=== PATIENT | male | born 1950 | race Caucasian/White ===

== ENCOUNTER 2024-02-16 14:10 | Emergency (ER) | payer MEDICARE, MEDICAID ==
[~2024-02-16] VITALS: Ht 190.5 cm; Wt 89.0 kg
[2024-02-16 14:25] VITALS: BP 173/93; PULSE 60; TEMP 97.8; O2SAT 98
[2024-02-16 15:01] LABS: BILIRUBIN,URINE SMALL (Neg); CLARITY,URINE CLOUDY (Clear); COLOR,URINE YELLOW (Yellow); GLUCOSE, URINE NEGATIVE (Neg); KETONES,URINE NEGATIVE (Neg); LEUKOCYTE ESTERASE ,URINE NEGATIVE (Neg); NITRITES, URINE NEGATIVE (Neg); OCCULT BLOOD,URINE LARGE (Neg); PH,URINE 5.5 (4.8-8.0); PROTEIN,URINE 30 mg/dl (Neg); UROBILINOGEN,URINE 0.2 E.U/dL (0.2-1.0)
[2024-02-16 15:04] LABS: UA COLLECTION TYPE CLN CATCH MIDSTREAM
[2024-02-16 15:10] LABS: RBC,URINE TNTC /HPF (0-2); WBC,URINE 0-4 /HPF (0-4)
[2024-02-16] MEDS ORDERED: tamsulosin 0.4mg capsule PO SCH (15:10)
[2024-02-16 15:14] LABS: BACTERIA,URINE FEW /HPF (Neg); CAL OXALATE CRYSTALS 2+ /HPF (NEGATIVE); SQUAMOUS EPITHELIAL CELL,UR NONE SEEN /LPF (FEW)
[2024-02-16] MEDS: ondansetron 4mg rapidly disintigrating tab PO ONE (15:54)
[2024-02-16] MEDS: tamsulosin 0.4mg capsule PO ONE (15:54)
[2024-02-16] MEDS: ketorolac tromethamine 15mg/ml inj. IM ONE (15:54)
[2024-02-16 16:16] VITALS: RESP 16
[2024-02-16] MEDS ORDERED: OXYC-658 PO (16:34)
[2024-02-16] MEDS ORDERED: FLO0.4C PO (16:37)
[2024-02-16] MEDS ORDERED: ONDA-243 PO (16:38)
== END 2024-02-16 16:46 | disposition home or self-care (01) ==
LOC: ER 14:11
DX: N20.0 Calculus of kidney (principal)
CPT/HCPCS: 81001; 96372; 99283; J1885

== ENCOUNTER 2025-02-01 05:28 | Day surgery (SDC) | payer MEDICARE, MEDICAID ==
--- NOTE | 2025-01-25 14:06 | ELECTROCARDIOGRAPH REPORT ---
[facility] Test Date: 2025-01-25 Test Time: 14:01:57 Pat Name: PATRICIA DANIELS Department: [facility]-PRE-OP Patient ID: [facility]-[id number] Room: Gender: M Home Care Coordinator: KHANG : 1950 Requested By: PHILIPPE ROQUE Order Number: [id number] Reading MD: Dr. DANK Chery Measurements Intervals [place] Rate: 68 P: 37 MT: 161 QRS: -24 QRSD: 116 T: 36 QT: 404 QTc: 430 Interpretive Statements Sinus rhythm Atrial premature complex Nonspecific intraventricular conduction delay Electronically Signed On 01-25-2025 15:15:[address] DANK Chery Please click the below link to view image of tracing.
[2025-01-25 14:12] LABS: MEAN PLATELET VOLUME 9.1 FL (7.4-10.4); PRE OP HEMATOCRIT 47.2 % (42.0-52.0); PRE OP HEMOGLOBIN 15.8 g/dL (14.0-17.9); PRE OP PLATELET COUNT 167 X10'3 (140-440); PRE OP WHITE BLOOD COUNT 5.6 10'3 (4.8-10.8); RED CELL DISTRIBUTION WIDTH 13.5 % (11.5-14.5)
[2025-01-25 14:41] LABS: PRE OP INR 1.0 INR; PRE OP PARTIAL THROMB. TIME 25.0 SECONDS (22-32); PRE OP PROTIME 10.0 SECONDS (9.0-12.0)
[2025-01-25 14:53] LABS: CREATININE 0.98 MG/DL (0.60-1.10); PRE OP ALT 42 U/L (30-65); PRE OP ANION GAP 7 (8-16); PRE OP AST 24 U/L (10-37); PRE OP BILIRUB, TOTAL 1.5 MG/DL (0.0-1.0); PRE OP GLUCOSE 86 MG/DL (70-104); PRE OP POTASSIUM 4.0 MMOL/L (3.4-5.1); PRE OP SODIUM 138 MMOL/L (135-145); TOTAL CARBON DIOXIDE 24.8 MMOL/L (24-32); eGFR 75 ML/MIN
[2025-02-01] VITALS (27 sets, daily range): BP systolic 94–147; BP diastolic 51–94; PULSE 67–85; RESP 10–18; TEMP 97.5–98.1; O2SAT 92–98
[~2025-02-01] VITALS: Ht 190.5 cm; Wt 96.8 kg
[~2025-02-01 05:28] MED LIST: ONDA-243 PO
[2025-02-01] MEDS: ringers solution, lacted 1,000 ML IV SCH ×2 (06:18→09:20)
[2025-02-01] MEDS: ceFAZolin 2gm/dext,iso 50mL 50 ML IV ONE (06:21)
[2025-02-01] MEDS ORDERED: fluoroscein sod 10% (100mg/ml) 5ml vial ONE (06:40)
[2025-02-01] MEDS ORDERED: BUPIVACAINE liposomal/PF 13.3 MG/ML 10mL vial IM ONE (06:40)
[2025-02-01] MEDS ORDERED: INDOCYANINE GREEN 25 MG/10 ML VIAL IV ONE (06:40)
[2025-02-01] MEDS ORDERED: BUPIVAcaine HCl 0.25%/EPInephrine 1:200,000 inj. 10 ML VIAL ONE (06:40)
[2025-02-01] MEDS ORDERED: propofol inj 20 ML IV ONE (07:23)
[2025-02-01] MEDS ORDERED: rocuronium 10mg/ml inj IV ONE ×2 (07:24)
[2025-02-01] MEDS ORDERED: midazolam 1 mg/ML 2ml injection ONE (07:24)
[2025-02-01] MEDS ORDERED: fentaNYL /PF 50mcg/ml 5ml ampule ONE (07:25)
[2025-02-01] MEDS ORDERED: dexamethasone sod phosphate 4mg/ml inj. ONE (07:39)
[2025-02-01] MEDS: BUPIVAcaine 0.5% W/EPI /PF 10ml vial IJ ONE (08:15)
[2025-02-01] MEDS ORDERED: HYDROmorphone/PF 0.2 MG/ML SYRINGE IV PRN ×2 (09:20)
[2025-02-01] MEDS ORDERED: morphine 4 MG/ML inj SYRINge IV PRN (09:20)
[2025-02-01] MEDS ORDERED: labetalol 5mg/ml 20ml inj. IV PRN (09:20)
[2025-02-01] MEDS ORDERED: ondansetron/PF 4mg/2ml inj IV PRN ×2 (09:20→10:50)
[2025-02-01] MEDS ORDERED: labetalol 20mg/4ml (5mg/ml) syringe IV PRN (09:20)
[2025-02-01] MEDS ORDERED: acetaminophen 1,000mg/100ml IV 100 ML IV ONE (09:31)
[2025-02-01] MEDS ORDERED: ondansetron/PF 4mg/2ml inj ONE (09:32)
[2025-02-01] MEDS ORDERED: glycopyrrolate 0.2mg/ml inj ONE (10:37)
[2025-02-01] MEDS ORDERED: HYDROmorphone inj. 0.5 MG/0.5 ML DISP.SYRIN IV PRN (10:50)
[2025-02-01] MEDS ORDERED: magnesium hydroxide 30ml (MOM) UD suspension PO PRN (10:50)
[2025-02-01] MEDS ORDERED: mag hydrox/Alum hydrox/simeth 30ml oral suspension PO PRN (10:50)
--- NOTE | 2025-02-01 10:56 | OPERATIVE REPORT ---
Operative Report Providers to ~ Date of Procedure: Feb 01, 2025 Pre-Operative Diagnosis: Prostate cancer Post-Operative Diagnosis SAME as PRE-Op Procedure Performed Radical prostatectomy with lymphadenectomy Surgeon: MD Assistant Jake Kerr MD Raven Jennings, NP Anesthesiologist: Del Abel Type of Anesthesia: General Findings: Prostate and lymph nodes removed Complications None Prosthetics\Implants used: None Estimated Blood Loss: 200 cc Specimen Removed: Prostate and fat over prostate, left pelvic lymph nodes, right pelvic lymph nodes Description of Procedure: Patient was brought to the operating room, given a general anesthetic, and placed in the supine position. He was prepped and draped in the normal sterile fashion. A timeout was performed. A tran catheter was placed. An incision was made above the umbilicus. Verass needle was used the insuflate the abdomen. Then an 8 mexican robotic port was placed. We then placed 3 more robotic ports lateral to the median port. On the right a 12 mexican assistant manager pt port was placed under direct visualization. The patient was put into steep trendelenburg and the robot was docked. With the robot docked I used sharp dissection to drop the sigmoid colon. Once the sigmoid colon was dropped I made an incision in the peritoneum posteriorly and dissected to the seminal vesicles and vas deferns bilaterally. Once I was there I was able to dissect the posterior plan. Vas deferns were dissected bilaterally. I next turned my attention to the bladder. I dropped the bladder and approached the prostate from above opening the endopelvic fascia bilaterally with sharp dissection. Once this was completed and all pelvic floor muscles were brushed off the prostate I next turned to taking the bladder neck. Electrocautery was used to dissect the bladder neck until the catheter was reached, at which point the catheter was pulled up and the posterior bladder neck was dissected. Seminal vesicles and vas deferns bilaterally were both pulled up at this point. I next continued fully dissecting the posterior. The pedicles were taken at this point and the nerves were spared. I then used sharp dissection to take the dorsal venous complex, using a 3-0 v-lock suture to close the sinuses. The rest of the urethra was then taken with sharp dissection. Left pelvic lymph nodes were resected and removed, as were the right pelvic lymph nodes. Care was taken to clip lymphatic vessels for removal. The prostate was now free and moved out of the way, and double armed 3-0 v-loc suture was used to approximate the bladder neck to the urethra. I did this cir cumferential until it was complete. This was tested with a new tran catheter and was water tight. The prostate was placed in a specimen bag and the robot was undocked. The incision over the umbilicus was increased to allow the prostate to be removed, at which point it was removed. 2-0 vicryl suture was used to close the fascia, local anesthetic was injected into each wound, and 4-0 monocryl suture was used to close the skin with dermabond glue on the skin level. PHILIPPE KERR MD Feb 01, 2025 10:56
[2025-02-01] MEDS: HYDROcodone/acetaminophen 5mg/325mg tablet PO PRN (15:01)
[2025-02-01] MEDS: heparin, porcine 5000 units/ml vial SQ SCH (20:03)
[2025-02-01] MEDS: docusate sod 100mg capsule PO SCH (20:03)
[2025-02-02 00:04] VITALS: RESP 18; O2SAT 95
[2025-02-02 01:40] VITALS: BP 125/74; PULSE 76; RESP 16; TEMP 97.9; O2SAT 94
[2025-02-02 03:04] VITALS: RESP 18; O2SAT 95
[2025-02-02 04:36] LABS: MEAN PLATELET VOLUME 9.5 FL (7.4-10.4); RED CELL DISTRIBUTION WIDTH 13.4 % (11.5-14.5)
[2025-02-02 04:52] LABS: CREATININE 1.10 MG/DL (0.60-1.10); TOTAL CARBON DIOXIDE 25.6 MMOL/L (24-32); eCRCL 73 ML/MIN; eGFR 66 ML/MIN
[2025-02-02 06:00] VITALS: BP 125/68; PULSE 70; RESP 14; TEMP 97.8; O2SAT 95
--- NOTE | 2025-02-02 08:10 | DISCHARGE SUMMARY ---
Discharge Summary Providers to CC ~ Discharge Summary Admission Diagnosis: Prostate cancer Hospital Course DATE OF ADMISSION: 02/01/25 DATE OF DISCHARGE: 02/02/25 Patient was admitted for post-operative management. He was ambulating with pain controlled, tolerating a diet, and his catheter was draining clear yellow urine. General: Awake and Alert, no acute distress. HEENT: Conjunctiva pink, Sclera clear, Mucus Membranes moist. Neck: Supple without masses and tenderness. Resp: Unlabored Heart: Regular Rate and rhythm Abdomen: Soft and non tender no organomegaly, incisions clean, dry, and intact Extremities: No cyanosis,clubbing or edema. Skin: Warm and Dry. Discharge Diagnosis\Comment: Prostate cancer Operations\Procedures: 02/01/25: Robotic assisted laparoscopic radical prostatectomy with lymphadenectomy Consultants: None Complications: None Condition on DC: Stable Discharge Summary: Patient was admitted for post-operative management. He was able to ambulate with pain controlled and tolerated a diet. *Problems/Diagnosis: (1) Prostate cancer Status: Chronic Assessment & Plan: s/p Radical prostatectomy. Patient is doing well and safe for discharge home with catheter in place. Total Time Spent on D/C: Up to 30 Minutes PHILIPPE ROQUE MD Feb 02, 2025 08:10
== END 2025-02-02 09:40 | disposition home or self-care (01) ==
LOC: PAS 05:28 → SUR 3N 14:33 → PAS 02-02 09:40
PROVIDERS: ATTEND Urology
DX: C61 Malignant neoplasm of prostate (principal); Z79.01 Long term (current) use of anticoagulants; Z79.899 Other long term (current) drug therapy; Z87.442 Personal history of urinary calculi
CPT/HCPCS: 36415; 38571; 55866; 80048; 80053; 82948; 85025; 85610; 85730; 86885; 86900; 86901; 93005; A4215; A4338; A4357; A4618; A5200; J0131; J0666; J1100; J1644; J2250; J2405; J2704; J2710; J3010; J3490; J7030; J7120; Z7506; Z7508; Z7512; Z7610; G0378; J0665